=== PATIENT | female | born 1960 | race Caucasian/White ===

== ENCOUNTER 2018-01-06 08:22 | Emergency (ER) | payer OTHER ==
[~2018-01-06] VITALS: Ht 154.9 cm; Wt 61.2 kg
== END 2018-01-06 11:37 | disposition home or self-care (01) ==
LOC: ER 08:22 → EDBD 08:34 → ER 08:34
DX: B34.9 Viral infection, unspecified (principal); D69.6 Thrombocytopenia, unspecified

== ENCOUNTER 2018-08-09 10:53 | Outpatient (CLI) | payer OTHER | END 2018-08-09 10:56 | disposition home or self-care (01) | LOC: MAMO-SONO 10:53 | DX: Z12.31 Encounter for screening mammogram for malignant neoplasm of breast (principal); N64.89 Other specified disorders of breast; M85.80 Other specified disorders of bone density and structure, unspecified site ==

== ENCOUNTER → 2018-08-15 | Outpatient (CLI) | payer OTHER | END | disposition home or self-care (01) | LOC: NUCLEAR 14:27 | DX: M81.0 Age-related osteoporosis without current pathological fracture (principal) ==

== ENCOUNTER 2020-01-22 11:32 | Outpatient (CLI) | payer OTHER | END 2020-01-22 11:33 | disposition home or self-care (01) | LOC: MAMO-SONO 11:32 | PROVIDERS: ATTEND Specialist | DX: Z12.31 Encounter for screening mammogram for malignant neoplasm of breast (principal); R92.1 Mammographic calcification found on diagnostic imaging of breast ==

== ENCOUNTER 2020-08-13 19:06 | Emergency (ER) | payer OTHER ==
[~2020-08-13] VITALS: Ht 154.9 cm; Wt 59.0 kg
[2020-08-13] MEDS ORDERED: VITAMINA D (19:41)
[2020-08-13] MEDS ORDERED: [UNRECOGNIZED DRUG - OTHER] (19:42)
== END 2020-08-13 21:11 | disposition home or self-care (01) ==
LOC: ER 19:06
DX: M51.17 Intervertebral disc disorders with radiculopathy, lumbosacral region (principal)

== ENCOUNTER 2020-11-19 06:52 | Outpatient (CLI) | payer OTHER ==
[~2020-11-19 06:52] MED LIST: VITAMINA D; [UNRECOGNIZED DRUG - OTHER]
== END 2020-11-19 07:04 | disposition home or self-care (01) ==
LOC: LAB 06:52
PROVIDERS: ATTEND Internal Medicine Hematology & Oncology
DX: D51.1 Vitamin B12 deficiency anemia due to selective vitamin B12 malabsorption with proteinuria (principal); D51.3 Other dietary vitamin B12 deficiency anemia; Z80.0 Family history of malignant neoplasm of digestive organs; D55.0 Anemia due to glucose-6-phosphate dehydrogenase [G6PD] deficiency

== ENCOUNTER → 2021-03-30 | Outpatient (CLI) | payer OTHER | END | disposition home or self-care (01) | LOC: MAMO-SONO 14:24 | PROVIDERS: ATTEND Specialist | DX: R92.1 Mammographic calcification found on diagnostic imaging of breast (principal); Z12.31 Encounter for screening mammogram for malignant neoplasm of breast ==

== ENCOUNTER 2022-08-17 11:18 | Emergency (ER) | payer OTHER ==
[~2022-08-17] VITALS: Ht 154.9 cm; Wt 62.6 kg
== END 2022-08-17 14:56 | disposition home or self-care (01) ==
LOC: ER 11:18
DX: M32.9 Systemic lupus erythematosus, unspecified (principal)

== ENCOUNTER 2022-12-08 11:40 | Outpatient (CLI) | payer OTHER | END 2022-12-08 11:52 | disposition home or self-care (01) | LOC: MAMO-SONO 11:40 | PROVIDERS: ATTEND Obstetrics & Gynecology | DX: N64.4 Mastodynia (principal); N84.0 Polyp of corpus uteri; Z12.31 Encounter for screening mammogram for malignant neoplasm of breast ==

== ENCOUNTER 2022-12-22 13:18 | Outpatient (CLI) | payer OTHER | END 2022-12-22 13:19 | disposition home or self-care (01) | LOC: NUCLEAR 13:18 | PROVIDERS: ATTEND Obstetrics & Gynecology | DX: M81.0 Age-related osteoporosis without current pathological fracture (principal) ==

== ENCOUNTER 2023-05-03 17:21 | Emergency (ER) | payer OTHER ==
[~2023-05-03] VITALS: Ht 154.9 cm; Wt 63.5 kg
[2023-05-03] MEDS ORDERED: HYDROXYCHLOROQ200 MG PO (18:21)
[2023-05-03 19:39] LABS: HEMATOCRIT 35.8 % (36.0-45.00); HEMOGLOBIN 11.6 g/dL (12.0-15.00); MEAN CELL VOLUME 101.8 fL (80.00-100.00); MEAN CORPUSCULAR HEMOGLOBIN 33.1 pg (27.00-32.0); MEAN CORPUSCULAR HGB CONC 32.6 g/dl (32.0-36.0); PLATELET COUNT 177 K/uL (150-450); RED BLOOD COUNT 3.51 M/uL (4.00-6.00); RED CELL DISTRIBUTION WIDTH 13.8 % (11.5-14.5)
[2023-05-03 19:59] LABS: URINE APPEARANCE Clear; URINE BILIRRUBIN Negative (NEGATIVE); URINE BLOOD Negative; URINE COLOR Yellow; URINE GLUCOSE Negative (NEGATIVE); URINE LEUKOCYTE Moderate; URINE NITRATE Negative; URINE PROTEIN Negative (NEGATIVE)
[2023-05-03 20:03] LABS: URINE BACTERIA 353.9 uL (0.0-1933); URINE EPITHELIAL CELLS 17.9 uL (0.0-38.8); URINE RBC 4.5 uL (0.0-20.8); URINE WBC 178.3 uL (0.0-23.2)
[2023-05-03 20:06] LABS: ALBUMIN 3.5 gm/dL (3.4-5.0); BILIRUBIN TOTAL 0.46 mg/dL (0.3-1.2); CALCIUM 8.9 mg/dL (8.5-10.1); CREATININE SERUM 0.91 mg/dL (0.55-1.02); GFR 62.64; GLOBULINA 4.2 G/DL (2.4-3.5); POTASSIUM 3.67 mEq/L (3.5-5.1); TOTAL PROTEIN 7.7 gm/dL (6.4-8.2)
== END 2023-05-04 00:28 | disposition home or self-care (01) ==
LOC: ER 17:21
PROVIDERS: General Practice
DX: N39.0 Urinary tract infection, site not specified (principal); M32.8 Other forms of systemic lupus erythematosus; Z88.6 Allergy status to analgesic agent

== ENCOUNTER 2024-01-12 10:28 | Outpatient (CLI) | payer OTHER ==
[~2024-01-12 10:28] MED LIST changes: +HYDROXYCHLOROQ200 MG PO
== END 2024-01-12 10:50 | disposition home or self-care (01) ==
LOC: MAMO-SONO 10:28
PROVIDERS: ATTEND Specialist
DX: R92.1 Mammographic calcification found on diagnostic imaging of breast (principal)

== ENCOUNTER 2024-03-30 18:07 | Emergency (ER) | payer OTHER ==
[~2024-03-30] VITALS: Ht 154.9 cm; Wt 63.5 kg
[2024-03-30 21:18] LABS: HEMATOCRIT 36.8 % (36.0-45.00); HEMOGLOBIN 12.1 g/dL (12.0-15.00); MEAN CELL VOLUME 101.9 fL (80.00-100.00); MEAN CORPUSCULAR HEMOGLOBIN 33.5 pg (27.00-32.0); MEAN CORPUSCULAR HGB CONC 32.9 g/dl (32.0-36.0); PLATELET COUNT 210 K/uL (150-450); RED BLOOD COUNT 3.61 M/uL (4.00-6.00)
[2024-03-30 21:19] LABS: URINE APPEARANCE Cloudy; URINE BILIRRUBIN Negative (NEGATIVE); URINE BLOOD Negative; URINE COLOR Yellow; URINE GLUCOSE Negative (NEGATIVE); URINE KETONE Negative (NEGATIVE); URINE LEUKOCYTE Large; URINE NITRATE Negative; URINE PROTEIN Trace (NEGATIVE); URINE UROBILINOGEN 0.2 E.U./dl
[2024-03-30 21:23] LABS: URINE EPITHELIAL CELLS 7.4 uL (0.0-38.8); URINE RBC 11.1 uL (0.0-20.8); URINE WBC 3682.6 uL (0.0-23.2)
[2024-03-30 21:27] LABS: URINE CAST 0.61 uL (0.0-1.40)
[2024-03-30 21:35] LABS: CALCIUM 9.3 mg/dL (8.5-10.1); CREATININE SERUM 0.8 mg/dL (0.55-1.02); GFR 72.44; POTASSIUM 4.37 mEq/L (3.5-5.1)
[2024-03-30] MEDS ORDERED: CEFTRIAXONE SODIUM 1,000 MG VIAL IM STA (21:52)
[2024-03-30] MEDS ORDERED: ORPHENADRINE CITRATE 30 MG/ML AMPUL IM STA (21:52)
[2024-03-30] MEDS ORDERED: ORPHENADRINE CITRATE 30 MG/ML AMPUL ONE (21:58)
[2024-03-30] MEDS ORDERED: CEFTRIAXONE SODIUM 1,000 MG VIAL ONE (21:58)
== END 2024-03-30 22:11 | disposition home or self-care (01) ==
LOC: ER 18:07
PROVIDERS: General Practice
DX: M54.9 Dorsalgia, unspecified (principal); Z88.6 Allergy status to analgesic agent

== ENCOUNTER 2024-08-27 15:12 | Emergency (ER) | payer OTHER ==
[~2024-08-27] VITALS: Ht 154.9 cm; Wt 61.2 kg
[2024-08-27] MEDS ORDERED: ORPHENADRINE CITRATE 30 MG/ML AMPUL IM ONE (16:45)
[2024-08-27] MEDS ORDERED: ORPHENADRINE CITRATE 30 MG/ML AMPUL ONE (16:56)
== END 2024-08-27 19:00 | disposition home or self-care (01) ==
LOC: ER 15:12
DX: M54.2 Cervicalgia (principal); Z88.6 Allergy status to analgesic agent; M32.8 Other forms of systemic lupus erythematosus

== ENCOUNTER 2025-03-13 12:01 | Outpatient (CLI) | payer OTHER | END 2025-03-13 12:06 | disposition home or self-care (01) | LOC: MAMO-SONO 12:01 | PROVIDERS: ATTEND Specialist | DX: R92.1 Mammographic calcification found on diagnostic imaging of breast (principal) ==